=== PATIENT | female | born 1965 | race Caucasian/White ===

== ENCOUNTER → 2020-05-28 07:17 | Outpatient (CLI) | payer OTHER, SELFPAY ==
[2020-05-28 08:40] LABS: Appearance Urine UA CLEAR; Bilirubin Urine UA NEGATIVE (NEGATIVE); Color Urine UA YELLOW; Glucose Urine UA NEGATIVE (Negative); Ketones Urine UA NEGATIVE (NEGATIVE); Leukocyte Esterase Urine UA NEGATIVE (NEGATIVE); Nitrite Urine UA NEGATIVE (Negative); Occult Blood Urine UA NEGATIVE (Negative); Protein Urine UA NEGATIVE (Negative); Urobilinogen Urine UA 0.2 E.U./dL (0.2)
[2020-05-28 08:44] LABS: Add Manual Diff / Slide Review NO; Basophils Absolute Auto 100 /uL (0-100); Eosinophils Absolute Auto 100 /uL (0-450); Eosinophils Percent Auto 2.2 % (2-4); Hematocrit 40.4 % (36-46); Hemoglobin 13.3 g/dL (12.0-16.0); Lymphocytes Absolute Auto 1600 /uL (1100-4500); Lymphocytes Percent Auto 25.2 % (25-40); Mean Corpuscular HGB Conc 32.9 % (30-36); Mean Corpuscular Hemoglobin 29.7 PG (26-34); Mean Corpuscular Volume 90.3 fL (80-100); Monocytes Absolute Auto 400 /uL (0-900); Monocytes Percent Auto 5.7 % (3-14); Neutrophils Absolute Auto 4100 /uL (1500-7000); Neutrophils Percent Auto 65.9 % (50-75); Platelet Count 233 X10^3/uL (150-400); Red Blood Cell Count 4.48 X10^6/uL (4.0-5.2); Red Cell Distribution Width 13.8 % (11.6-14.8); White Blood Cell Count 6.2 X10^3/uL (4.5-11.0)
[2020-05-28 08:46] LABS: pH Urine UA 5.5 (4.5-8.0)
[2020-05-28 09:09] LABS: Alanine Aminotransferase 55 IU/L (<35); Albumin 4.4 g/dL (3.5-5.0); Albumin Globulin Ratio 1.7 (1.0-2.8); Alkaline Phosphatase 72 U/L (38-126); Aspartate Aminotransferase 29 IU/L (14-36); BUN Creatinine Ratio 18.7 (6-22); Bilirubin Total 0.3 mg/dL (0.2-1.3); Blood Urea Nitrogen 14 mg/dL (7-17); Calcium 9.5 mg/dL (8.4-10.2); Carbon Dioxide 23 mmol/L (22-32); Chloride 108 mmol/L (98-107); Estimated Glomerular Filt Rate > 60.0 mL/min (>60); Globulin 2.6 g/dL (1.7-4.1); Glucose 86 mg/dL (70-100); HEMOLYSIS < 15 (0-50); Potassium 4.3 mmol/L (3.4-5.1); Sodium 140 mmol/L (137-145)
[2020-05-28 09:25] LABS: TSH w/ Reflex to FT4 1.98 uIU/mL (0.47-4.68)
== END ==
PROVIDERS: PCP Registered Nurse; Referring Provider Registered Nurse; Visit Provider Registered Nurse
DX: R53.83 Other fatigue (principal)
CPT/HCPCS: 36415; 80053; 81003; 84443; 85025

== ENCOUNTER → 2020-06-25 16:51 | Outpatient (CLI) | payer OTHER, SELFPAY ==
--- NOTE | 2020-06-25 | DI.MG.S_ITS ---
BILATERAL DIGITAL SCREENING MAMMOGRAM 3D/2D WITH CAD: 06/25/2020 CLINICAL: Routine screening. Comparison is made to exams dated: 11/30/2011 mammogram, 10/29/2014 mammogram, and 08/02/2016 mammogram - outside location. There are scattered fibroglandular elements in both breasts. Current study was also evaluated with a Computer Aided Detection (CAD) system. No significant masses, calcifications, or other findings are seen in either breast. There has been no significant interval change. IMPRESSION: NEGATIVE There is no mammographic evidence of malignancy. A 1 year screening mammogram is recommended. This exam was interpreted at Station ID: [id number]. NOTE: For mammograms, a report in lay terms will be sent to the patient. Approximately 15% of breast malignancies will not be visualized mammographically. In the management of a palpable breast mass, a negative mammogram must not discourage biopsy of a clinically suspicious lesion. Electronically Signed By: Ruma mosher/annia:06/25/2020 17:32:34 letter sent: Normal Exam ACR BI-RADS Category 1: Negative [id number]
== END ==
PROVIDERS: PCP Registered Nurse; Referring Provider Registered Nurse; Visit Provider Registered Nurse
DX: Z12.31 Encounter for screening mammogram for malignant neoplasm of breast (principal)
CPT/HCPCS: 77063; 77067

== ENCOUNTER 2022-07-01 10:06 | Inpatient (IN) | payer OTHER, SELFPAY ==
[2022-07-01] VITALS (16 sets, daily range): BP systolic 113–142; BP diastolic 65–103; PULSE 65–87; RESP 16–19; TEMP 36.6–36.9; O2SAT 95–100; BMI 34.0; BMI 34.9
--- NOTE | 2022-07-01 10:27 | DI.US.S_ITS ---
PROCEDURE: US ABDOMEN LIMITED INDICATIONS: RUQ abd pain eval for GB pathology TECHNIQUE: Real-time focused scanning was performed of the abdomen, with image documentation. COMPARISON: None. FINDINGS: Liver measures 15.4 cm, with mild to moderately increased echogenicity. Cholelithiasis. Sonographic Pradhan sign is present. Wall thickness is normal. CBD measures 3.9 mm. Visualized pancreas is unremarkable. IMPRESSION: Cholelithiasis with sonographic Pradhan sign is suspicious for cholecystitis in the correct clinical context. This was communicated by telephone to Dr. Kimball by Dr. Hylton at 11:20am. Dictated by: Donte Hylton M.D. on 07/01/2022 at 11:17 Approved by: Donte Hylton M.D. on 07/01/2022 at 11:23
--- NOTE | 2022-07-01 10:27 | ED_ITS ---
HPI - General Adult General Chief complaint: Abdominal Pain Stated complaint: Vomiting, right side abd pain Time Seen by Provider: 07/01/22 10:16 Source: patient Mode of arrival: Ambulatory Limitations: no limitations History of Present Illness HPI narrative: 56-year-old female who is here for evaluation of right upper quadrant abdominal pain. States that it started approximately 1000 hours last evening. She was going to sleep at the time. Has been consistent since then. No fevers. She did vomit in the middle of the night which did not change the pain at all. She is urinated and also had a small bowel movement which did not change the discomfort at all. No skin rashes. Has not tried anything for the symptoms. No prior abdominal surgeries except for a hysterectomy. Related Data Home Medications Medication Instructions Recorded Confirmed No Known Home Medications 07/01/22 07/01/22 Allergies Allergy/AdvReac Type Severity Reaction Status Date / Time Penicillins Allergy Mild hives Verified 08/18/20 08:09 Review of Systems Constitutional Constitutional: Denies fever(s) Cardiovascular Cardiovascular: Denies chest pain and Denies dyspnea Respiratory Respiratory: Denies cough and Denies dyspnea Gastrointestinal Gastrointestinal: Reports system reviewed and no additional complaints, except as documented, Reports abdominal pain, Denies change in bowel habits, Denies diarrhea and Reports vomiting Genitourinary Genitourinary: Denies dysuria Musculoskeletal Musculoskeletal: Denies back pain Integumentary/Breasts Skin/Breast: Reports system reviewed and no additional complaints, except as documented Neurologic Neurologic: Reports system reviewed and no additional complaints, except as documented Hematologic/Lymphatic On Anticoagulants: No Patient History Medical History Acute right-sided thoracic back pain Carpal tunnel syndrome (~1989) Chicken pox (~1972) Seasonal allergies Surgical History Anesthesia History of partial hysterectomy (~2000) Family History Father Arthritis Mother Parkinson's disease Sister Fibromyalgia Arthritis Dercum disease Social History household members: none Smoking Status: Current some day smoker alcohol intake: current Smoking Status: Current some day smoker alcohol intake frequency: 0-2 drinks per day Substance Use Type: does not use Exam Initial Vital Signs Initial Vital Signs: Vital Signs Temperature 98.4 F 07/01/22 10:22 Pulse Rate 87 07/01/22 10:22 Respiratory Rate 18 07/01/22 10:22 Blood Pressure 142/103 H 07/01/22 10:22 Pulse Oximetry 96 07/01/22 10:22 Oxygen Delivery Method 07/01/22 10:22 HENMT Head: normal to inspection and normocephalic Resp Effort & Inspection: normal respiratory effort Auscultation: clear to auscultation bilaterally Cardio Rate: regular rate Rhythm: regular rhythm GI Inspection: normal to inspection Palpation: soft, No firm, No guarding and tender (Right upper quadrant) Back/Spine/Pelvis Back: No CVA tenderness Skin General: no rashes or lesions noted Neuro General: patient alert, patient awake and moves all extremities Extrem General: normal to inspection and capillary refill normal Psych Appearance: grossly normal and well kempt Course Orders Ordered: ED Orders 07/01/22 10:17 EKG-12 Lead Stat 07/01/22 10:26 Complete Blood Count AUTO DIFF Stat Comprehensive Metabolic Panel Stat Lipase Stat 07/01/22 10:27 US abdomen limited Stat 07/01/22 10:53 Urine Culture Stat Urine Microscopic Stat 07/01/22 14:58 CT abdomen pelvis w con Stat Acetaminophen (Acetaminophen 325 Mg Tablet) 975 mg PO Q6H [facility] Last Admin: 07/01/22 17:07 Dose: 975 mg Documented By: MARCIA Enoxaparin Sodium (Enoxaparin 40 Mg/0.4 Ml Syringe) 40 mg SUBCUT DAILY [facility] Hydromorphone HCl (Hydromorphone 1 Mg Inj) 1 mg IV Q4H PRN PRN Reason: Pain, Moderate (4-6) Last Admin: 07/01/22 16:19 Dose: 1 mg Documented By: BT Hydromorphone HCl (Hydromorphone 0.5 Mg Inj) 0.5 mg IV Q2H PRN PRN Reason: Breakthrough pain only (8-10) Sodium Chloride (Normal Saline 0.9%) 1,000 mls @ 125 mls/hr IV CONT EKATERINA Last Infusion: 07/01/22 15:42 Dose: 0 mls/hr Documented By: Admin: 07/01/22 15:01 Dose: 125 mls/hr Documented By: NAGA Lactated Ringer's (Lactated Ringers) 1,000 mls @ 100 mls/hr IV CONT EKATERINA Last Admin: 07/01/22 16:53 Dose: 100 mls/hr Documented By: BT Ciprofloxacin (Cipro) 400 mg in 200 mls @ 200 mls/hr IV Q12H EKATERINA Metronidazole (Flagyl) 500 mg in 100 mls @ 100 mls/hr IV Q8H [facility] Last Admin: 07/01/22 16:54 Dose: 100 mls/hr Documented By: BT Ondansetron HCl 4 mg/ Sodium (Chloride) 52 mls @ 208 mls/hr IV Q6HR PRN PRN Reason: Nausea And Vomiting Ketorolac Tromethamine (Ketorolac 30 Mg/Ml Vial) 30 mg IV Q6H [facility] Stop: 07/06/22 16:50 Last Admin: 07/01/22 17:07 Dose: 30 mg Documented By: BT Naloxone HCl (Naloxone 0.4 Mg/Ml Vial) 0.1 mg IV Q2MIN PRN PRN Reason: Opiate Reversal Discontinued Medications Morphine Sulfate (Morphine 4 Mg/Ml Inj) 4 mg IV NOW ONE Stop: 07/01/22 10:35 Last Admin: 07/01/22 10:41 Dose: 4 mg Documented By: KF Morphine Sulfate (Morphine 4 Mg/Ml Inj) 4 mg IV NOW ONE Stop: 07/01/22 11:52 Last Admin: 07/01/22 11:55 Dose: 4 mg Documented By: NAGA Morphine Sulfate (Morphine 4 Mg/Ml Inj) 4 mg IV NOW ONE Stop: 07/01/22 13:46 Last Admin: 07/01/22 13:52 Dose: 4 mg Documented By: KAT Ondansetron HCl (Ondansetron 4 Mg/2 Ml Inj) 4 mg IV NOW ONE Stop: 07/01/22 11:14 Last Admin: 07/01/22 11:18 Dose: 4 mg Documented By: NAGA Vital Signs Vital signs: Vital Signs - 8 hr 07/01/22 10:22 07/01/22 10:53 07/01/22 11:00 Temperature 98.4 F Pulse Rate 87 84 79 Respiratory Rate 18 Blood Pressure 142/103 H Pulse Oximetry 96 98 97 Oxygen Delivery Method Room Air 07/01/22 11:24 07/01/22 11:24 07/01/22 11:30 Temperature Pulse Rate 65 76 Respiratory Rate Blood Pressure 131/81 Pulse Oximetry 98 95 Oxygen Delivery Method 07/01/22 12:00 07/01/22 12:00 07/01/22 12:30 Temperature Pulse Rate 65 81 Respiratory Rate Blood Pressure 137/65 Pulse Oximetry 97 95 Oxygen Delivery Method Room Air 07/01/22 13:00 07/01/22 13:00 07/01/22 13:30 Temperature Pulse Rate 79 77 Respiratory Rate Blood Pressure 141/68 H Pulse Oximetry 98 97 Oxygen Delivery Method Room Air 07/01/22 14:00 07/01/22 14:00 07/01/22 14:30 Temperature Pulse Rate 76 80 Respiratory Rate Blood Pressure 131/65 Pulse Oximetry 98 97 Oxygen Delivery Method Room Air 07/01/22 15:00 07/01/22 15:00 Temperature Pulse Rate 83 Respiratory Rate Blood Pressure 134/66 Pulse Oximetry 98 Oxygen Delivery Method Medical Decision Making Lab Data Lab results reviewed: Yes I reviewed the patient's lab results. Result diagrams: 07/01/22 10:26 07/01/22 10:26 Labs: Lab Results 07/01/22 07/01/22 07/01/22 Range/Units 10:26 10:26 10:53 WBC 16.3 H (4.5-11.0) X10^3/uL RBC 4.59 (4.0-5.2) X10^6/uL Hgb 13.5 (12.0-16.0) g/dL Hct 39.8 (36-46) % MCV 86.8 (80-100) fL MCH 29.3 (26-34) PG MCHC 33.8 (30-36) % RDW 14.1 (11.6-14.8) % Plt Count 277 (150-400) X10^3/uL Neut % (Auto) 89.0 H (50-75) % Lymph % (Auto) 6.4 L (25-40) % [place] % (Auto) 4.4 (3-14) % Eos % (Auto) 0.1 L (2-4) % Baso % (Auto) 0.1 (0-2) % Neut # (Auto) 76806 H (7948-8900) /uL Lymph # (Auto) 1000 L (7936-3198) /uL [place] # (Auto) 700 (0-900) /uL Eos # (Auto) 0 (0-450) /uL Baso # (Auto) 0 (0-100) /uL Sodium 136 L (137-145) mmol/L Potassium 3.9 (3.4-5.1) mmol/L Chloride 105 (98-107) mmol/L Carbon Dioxide 22 (22-32) mmol/L BUN 12 (7-17) mg/dL Creatinine 0.76 (0.52-1.04) mg/dL Estimated GFR > 60 (>60) mL/min BUN/Creatinine Ratio 15.8 (6-22) Glucose 113 H (70-100) mg/dL Calcium 9.2 (8.4-10.2) mg/dL Total Bilirubin 0.3 (0.2-1.3) mg/dL AST 20 (14-36) IU/L ALT 21 (<35) IU/L Alkaline Phosphatase 77 (38-126) U/L Total Protein 7.6 (6.3-8.2) g/dL Albumin 4.2 (3.5-5.0) g/dL Globulin 3.4 (1.7-4.1) g/dL Albumin/Globulin Ratio 1.2 (1.0-2.8) Lipase 208 (23-300) U/L Urine RBC None seen (0-5/HPF) Urine WBC None seen (0-5/HPF) Ur Squamous Epith Cells 1-5 /hpf (0-5/HPF) Urine Bacteria None seen (None) Ur Culture Indicated? Cult not indicated Urine Dip Bedside Urine Glucose Negative Bedside Urine Bilirubin - Negative Bedside Urine Ketone +/- 5 Urine Specific [place] 1.010 Bedside Urine Occult Blood - Negative Bedside Urine pH 8.0 Bedside Urine Protein - Negative Bedside Urine Urobilinogen - Negative Bedside Urine Nitrite - Negative Bedside Urine Leukocytes - Negative Esterase Point of care testing: Urine Dip Bedside Urine Glucose Negative Bedside Urine Bilirubin - Negative Bedside Urine Ketone +/- 5 Urine Specific [place] 1.010 Bedside Urine Occult Blood - Negative Bedside Urine pH 8.0 Bedside Urine Protein - Negative Bedside Urine Urobilinogen - Negative Bedside Urine Nitrite - Negative Bedside Urine Leukocytes - Negative Esterase Imaging Data US - abdomen: Radiologist's Impression: [address] [address] Ultrasound Report Signed Patient: Tammy Ibarra MR#: [id number] : 1965 Acct:[id number] Age/Sex: 56 / F Date of Service: 07/01/22 Loc: ED Accession Number: [id number] ?? Procedure: US abdomen limited Ordering Provider: Chai Kimball D.O. PROCEDURE: US ABDOMEN LIMITED ? INDICATIONS:? RUQ abd pain eval for GB pathology ? TECHNIQUE:? Real-time focused scanning was performed of the abdomen, with image documentation.? ? COMPARISON:? None. ? FINDINGS:? Liver measures 15.4 cm, with mild to moderately increased echogenicity. ? Cholelithiasis.? Sonographic Pradhan sign is present.? Wall thickness is normal. ? CBD measures 3.9 mm. ? Visualized pancreas is unremarkable. ? IMPRESSION:? Cholelithiasis with sonographic Pradhan sign is suspicious for cholecystitis in the correct clinical context.? ? This was communicated by telephone to Dr. Kimball by Dr. Hylton at 11:20am. ? Dictated by: Donte Hylton M.D. on 07/01/2022 at 11:17 ? ? Approved by: Donte Hylton M.D. on 07/01/2022 at 11:23?? ECG Data Attestation: I personally reviewed and interpreted this ECG as follows: Interpretation: Sinus rhythm Ventricular rate is 78 Normal axis Normal QRS Normal QTC No ST T wave changes MDM Narrative Medical decision making narrative: She does have right upper quadrant abdominal pain. CT scan shows gallstones. Her LFTs and bilirubin unremarkable. Does have leukocytosis. She also had a positive sonographic Pradhan's sign. Received a call from radiology. He stated that in the proper clinical setting it would be consistent with symptomatic cholelithiasis or early acute cholecystitis. I did discuss the case with Dr. Gonzalez who evaluated the patient in the emergency department. The plan will be is to admit to the hospital for surgical treatment of her presumed gallbladder pathology. Upon her evaluation the patient then started to have lower abdominal discomfort on the left side. The patient did admit that this was new for my evaluation. General surgery requested a CT scan of the abdomen pelvis be performed. I received a call from Radiology stating that the CT scan was consistent with acute appendicitis. The patient had already been admitted to the hospital when this was resulted. I did inform General surgery of this resolved. General surgery was going to inform the patient and will provide further surgical treatment. Discharge Plan Departure Patient Disposition: Admitted as Observation Clinical Impression: Acute cholecystitis, Acute appendicitis Admit Date/Time: 07/01/22 15:09 Admit Provider: Dolly Gonzalez
[2022-07-01 10:35] LABS: Add Manual Diff / Slide Review NO; Basophils Absolute Auto 0 /uL (0-100); Basophils Percent Auto 0.1 % (0-2); Eosinophils Absolute Auto 0 /uL (0-450); Eosinophils Percent Auto 0.1 % (2-4); Hematocrit 39.8 % (36-46); Hemoglobin 13.5 g/dL (12.0-16.0); Lymphocytes Absolute Auto 1000 /uL (1100-4500); Lymphocytes Percent Auto 6.4 % (25-40); Mean Corpuscular HGB Conc 33.8 % (30-36); Mean Corpuscular Hemoglobin 29.3 PG (26-34); Mean Corpuscular Volume 86.8 fL (80-100); Monocytes Absolute Auto 700 /uL (0-900); Monocytes Percent Auto 4.4 % (3-14); Neutrophils Absolute Auto 14500 /uL (1500-7000); Platelet Count 277 X10^3/uL (150-400); Red Blood Cell Count 4.59 X10^6/uL (4.0-5.2); Red Cell Distribution Width 14.1 % (11.6-14.8); White Blood Cell Count 16.3 X10^3/uL (4.5-11.0)
[2022-07-01] MEDS: MORPHINE 4 MG/ML INJ IV ×3 (10:41→13:52)
[2022-07-01 10:47] LABS: Alanine Aminotransferase 21 IU/L (<35); Albumin 4.2 g/dL (3.5-5.0); Albumin Globulin Ratio 1.2 (1.0-2.8); Alkaline Phosphatase 77 U/L (38-126); Aspartate Aminotransferase 20 IU/L (14-36); BUN Creatinine Ratio 15.8 (6-22); Bilirubin Total 0.3 mg/dL (0.2-1.3); Blood Urea Nitrogen 12 mg/dL (7-17); Calcium 9.2 mg/dL (8.4-10.2); Carbon Dioxide 22 mmol/L (22-32); Chloride 105 mmol/L (98-107); Estimated Glomerular Filt Rate > 60 mL/min (>60); Globulin 3.4 g/dL (1.7-4.1); Glucose 113 mg/dL (70-100); HEMOLYSIS < 15 (0-50); Lipase 208 U/L (23-300); Potassium 3.9 mmol/L (3.4-5.1); Sodium 136 mmol/L (137-145); Total Protein 7.6 g/dL (6.3-8.2)
[2022-07-01] MEDS: ONDANSETRON 4 MG/2 ML INJ IV (11:18)
[2022-07-01 11:33] LABS: Bacteria Urine None Seen; Culture Indicated Urine Cult Not Indicated; RBC Urine None Seen (0-5/HPF); Squamous Epithelial Cell Urine 1-5 /HPF (0-5/HPF); WBC Urine None Seen (0-5/HPF)
--- NOTE | 2022-07-01 14:58 | DI.CT.S_ITS ---
PROCEDURE: CT ABDOMEN PELVIS W CON INDICATIONS: LLQ abd pain TECHNIQUE: After the administration of intravenous contrast, axial sections acquired from the lung bases to the pubic symphysis. Coronal and sagittal reformats were performed. For radiation dose reduction, the following was used: automated exposure control, adjustment of mA and/or kV according to patient size. COMPARISON: None. FINDINGS: Image quality: Excellent. Lung bases: Unremarkable. Heart: No significant findings. ABDOMEN: Liver: Unremarkable. Gallbladder: Normal Biliary ducts: Unremarkable. Pancreas: Unremarkable. Spleen: Unremarkable. Adrenal Glands: Unremarkable. Kidneys and Ureters: Unremarkable. Stomach and Bowel: Stomach, small bowel loops, and colon are unremarkable. Peritoneum: No abnormal intraperitoneal fluid. No free air. Ventral Wall: No hernias. Abdominal Nodes: No retroperitoneal or mesenteric adenopathy by size criteria. Vessels: Aorta and inferior vena cava are normal in size. PELVIS: Pelvic Organs: Unremarkable. Bladder: Unremarkable. Pelvic Nodes: No enlarged lymph nodes. Miscellaneous: No hernias are seen. At the right lower quadrant there is acute appendicitis with appendiceal dilatation and periappendiceal edema. Two appendicoliths or 1 long appendicoliths are present at the base of the appendix, centered on series 2, image 55 and beyond that point the appendix is dilated. There is an air-fluid level within the proximal dilated appendix and definite appendiceal perforation at this time is not yet seen. Bones: Unremarkable. IMPRESSION: Acute appendicitis with appendicoliths at the appendiceal base with secondary distension and edema in the periappendiceal soft tissues. The presence of appendicoliths does increase the risk for early perforation in the setting of appendicitis. Findings immediately called to the emergency room physician caring for the patient. Dictated by: Fred Cain M.D. on 07/01/2022 at 15:39 Approved by: Fred Cain M.D. on 07/01/2022 at 15:45
[2022-07-01] MEDS: SODIUM CHLORIDE 0.9% 1,000 ML 125 ML IV (15:01)
[2022-07-01] MEDS: HYDROMORPHONE 1 MG INJ IV (16:19)
[2022-07-01] MEDS: LACTATED RINGERS 1,000 ML 100 ML IV (16:53)
[2022-07-01] MEDS: metroNIDAZOLE 500 MG/100 ML PIGGYBACK 100 MG IV ×2 (16:54→23:15)
[2022-07-01] MEDS: KETOROLAC 30 MG/ML VIAL IV ×2 (17:07→23:14)
[2022-07-01] MEDS: ACETAMINOPHEN 325 MG TABLET 975 MG PO ×2 (17:07→23:14)
--- NOTE | 2022-07-01 17:14 | P.HP_ITS ---
History of Present Illness History of Present Illness Chief complaint: Vomiting, right side abd pain Narrative: Ms. Ibarra presents today as a 56-year-old relatively healthy obese woman with severe right-sided abdominal pain. She has had vomiting and right upper quadrant epigastric pain for the last 24 hours. She states that she has never had pain like this before. And does not know any association with foods. This time she does not feel hungry. She has had a kidney stone in the past. Her sister has had a cholecystectomy. An ultrasound in the emergency room was done and showed 1 large mobile stone in the gallbladder. Her LFTs bilirubin and lipase are okay and her white count is 16. She has an allergy to penicillin and gets hives. Patient History Medical History Acute right-sided thoracic back pain Carpal tunnel syndrome (~1989) Chicken pox (~1972) Seasonal allergies Surgical History Anesthesia History of partial hysterectomy (~2000) Family & Social History Family History Father Arthritis Mother Parkinson's disease Sister Fibromyalgia Arthritis Dercum disease Social History: household members none Prior Living Arrangements House Safety & Behavioral: Feels Safe in Current Yes Environment Been Physically Hurt or No Threatened By a Person Tobacco & Substance use: Tobacco type cigarettes Smoking Status Current some day smoker alcohol intake current alcohol intake frequency 0-2 drinks per day Substance Use Type does not use Meds Home Medications and Allergies Home Medications Medication Instructions Recorded Confirmed Type No Known Home Medications 07/01/22 07/01/22 History Allergies Allergy/AdvReac Type Severity Reaction Status Date / Time Penicillins Allergy Mild hives Verified 08/18/20 08:09 Exam Vital Signs (past 8 hours): - 07/01/22 10:22 07/01/22 10:53 07/01/22 11:00 Temperature 98.4 F Pulse Rate 87 84 79 Respiratory Rate 18 Blood Pressure 142/103 H Pulse Oximetry 96 98 97 Oxygen Delivery Method Room Air 07/01/22 11:24 07/01/22 11:24 07/01/22 11:30 Temperature Pulse Rate 65 76 Respiratory Rate Blood Pressure 131/81 Pulse Oximetry 98 95 Oxygen Delivery Method 07/01/22 12:00 07/01/22 12:00 07/01/22 12:30 Temperature Pulse Rate 65 81 Respiratory Rate Blood Pressure 137/65 Pulse Oximetry 97 95 Oxygen Delivery Method Room Air 07/01/22 13:00 07/01/22 13:00 07/01/22 13:30 Temperature Pulse Rate 79 77 Respiratory Rate Blood Pressure 141/68 H Pulse Oximetry 98 97 Oxygen Delivery Method Room Air 07/01/22 14:00 07/01/22 14:00 07/01/22 14:30 Temperature Pulse Rate 76 80 Respiratory Rate Blood Pressure 131/65 Pulse Oximetry 98 97 Oxygen Delivery Method Room Air 07/01/22 15:00 07/01/22 15:00 07/01/22 15:16 Temperature Pulse Rate 83 87 Respiratory Rate Blood Pressure 134/66 Pulse Oximetry 98 100 Oxygen Delivery Method 07/01/22 15:16 07/01/22 15:30 Temperature Pulse Rate 80 Respiratory Rate Blood Pressure 141/73 H Pulse Oximetry 95 Oxygen Delivery Method Oxygen Delivery Method Room Air Narrative Exam Narrative: General patient is awake alert oriented and in minimal distress. She is pleasant. Respiratory her breathing is nonlabored on room air Cardiac: Her radial pulse is palpable and regular Gastrointestinal: Her abdomen is obese it is soft it is tender to palpation in the suprapubic region as well as the right upper quadrant. No peritoneal signs. Lower extremities are normal Objective Labs Result Diagrams: 07/01/22 10:26 07/01/22 10:26 Labs: Laboratory Results - last 24 hr 07/01/22 07/01/22 07/01/22 10:26 10:26 10:53 WBC 16.3 H RBC 4.59 Hgb 13.5 Hct 39.8 MCV 86.8 MCH 29.3 MCHC 33.8 RDW 14.1 Plt Count 277 Neut % (Auto) 89.0 H Lymph % (Auto) 6.4 L [place] % (Auto) 4.4 Eos % (Auto) 0.1 L Baso % (Auto) 0.1 Neut # (Auto) 25156 H Lymph # (Auto) 1000 L [place] # (Auto) 700 Eos # (Auto) 0 Baso # (Auto) 0 Sodium 136 L Potassium 3.9 Chloride 105 Carbon Dioxide 22 BUN 12 Creatinine 0.76 Estimated GFR > 60 BUN/Creatinine Ratio 15.8 Glucose 113 H Calcium 9.2 Total Bilirubin 0.3 AST 20 ALT 21 Alkaline Phosphatase 77 Total Protein 7.6 Albumin 4.2 Globulin 3.4 Albumin/Globulin Ratio 1.2 Lipase 208 Urine RBC None seen Urine WBC None seen Ur Squamous Epith Cells 1-5 /hpf Urine Bacteria None seen Ur Culture Indicated? Cult not indicated Assessment & Plan Assessment and plan (1) Acute appendicitis: Status: Acute Plan There had been a thought that this represented acute cholecystitis due to the ultrasound finding of a stone in the right upper quadrant pain with nausea, and I had agreed based on this conversation that she may be admitted and treated for acute cholecystitis. Upon questioning the patient she had never had symptoms like this before. Also on my exam her pain was in the lower abdomen. I recommended a CT scan. The results of the CT scan have been interpreted and I reviewed the images and interpreted them myself. She has acute appendicitis. I have admitted her to the hospital given her IV antibiotics IV fluids and she will be NPO after midnight at undergo an appendectomy in the morning I discussed with her the risks benefits and alternatives including treatment with IV antibiotics for appendicitis and she would like to proceed with appendectomy. Time Spent With Patient Time with patient: 30 to 49 minutes with 50% spent counseling/coordinating care Critical Care time: I spent a total of [] minutes of critical care time on this patient's care today; this time is exclusive of procedural time. Quality VTE Deep Vein Thrombosis/Pulmonary Embolism Present on Admission: No
[2022-07-01] MEDS: CIPROFLOXACIN 400 MG/200 ML PIGGYBACK 200 MG IV (18:00)
[2022-07-01 18:52] LABS: COVID19 -Nasal RAPID Negative (Negative)
[2022-07-02] VITALS (14 sets, daily range): BP systolic 107–155; BP diastolic 63–79; PULSE 70–99; RESP 12–19; TEMP 36–38.2; O2SAT 94–100
--- NOTE | 2022-07-02 | PATH_ITS ---
[facility] Accession Number: [id number] . 01 Material submitted: . appendix - APPENDIX . 01 Diagnosis: Appendix, Appendectomy: Perforated acute appendicitis with mural abscess. No evidence of neoplasm. MRV 07/06/2022 1643 Local . 01 Electronically signed: . Ras Diaz MD, PhD, Pathologist NPI- [id number] . 01 Gross description: . The specimen is received in formalin labeled with the patient's name and appendix, and consists of a vermiform appendix measuring 7.3 x 0.6 cm. The serosa is mcguire-degroot and shaggy with a large amount of degroot adherent material consistent with exudate. Two full-thickness defects are identified ranging from 0.3 to 0.8 cm in greatest dimension. A moderate amount of attached mesoappendix is identified measuring 2.2 cm in greatest dimension. The surgical margin is received closed with sol which are removed, the margin is inked blue, and sectioning reveals the lumen to be filled with multiple brown firm structures consistent with fecaliths measuring 0.8 cm in greatest dimension along with degroot-brown semi-solid material. The lumen ranges from 0.3 to 0.8 cm in diameter and the mathur average 0.1 cm thick. A degroot well-circumscribed firm nodule is identified within the distal tip measuring 0.6 x 0.4 x 0.4 cm. Operations Systems Specialist sections are submitted as follows: . A1-A2: Entire bisected distal tip (full-thickness defect in A1). A3: Surgical margin and national sales representative cross-sections. ([id number]) /MRV 07/05/2022 1708 Local . 01 Pathologist provided ICD-10: K35.20 . 01 CPT . 172398 Specimen Comment: A courtesy copy of this report has been sent to [phone] Performed at: 01 [facility] [address] [place] [address] Avenue [address] [facility] [place], [place], [place] [id number] MD Dwayne Sanchez MD Phone: [phone]
[2022-07-02] MEDS: CIPROFLOXACIN 400 MG/200 ML PIGGYBACK 200 MG IV ×2 (05:04→16:14)
[2022-07-02] MEDS: KETOROLAC 30 MG/ML VIAL IV ×3 (05:04→22:52)
[2022-07-02] MEDS: ACETAMINOPHEN 325 MG TABLET 975 MG PO ×3 (05:04→22:52)
[2022-07-02] MEDS: LACTATED RINGERS 1,000 ML 100 ML IV ×2 (05:04→22:51)
[2022-07-02] MEDS: metroNIDAZOLE 500 MG/100 ML PIGGYBACK 100 MG IV ×2 (08:48→23:52)
--- NOTE | 2022-07-02 09:24 | CM.DANOTE ---
Initial DCP Assessment Note Pt is a 56 yo female, resident of [place], arrives with persistent abd pain and vomiting and awaiting appendectomy today w/ Dr Valencia PCP: Rich Trotter Payer: Angela Reviewed chart, met w/patient to introduce self and role. 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 Patient expects to DC home w/her dtr Mirela Underwood P# [phone] to assist while she recovers. No barriers identified at this time to patient's safe discharge home w/family to assist; close outpatient f/u recommended. IVETTE Caruso Discharge Planning/Care Management CM Discharge Assessment Start: 07/02/22 09:22 Freq: Status: Active Protocol: Document 07/02/22 09:22 LEONID (Rec: 07/02/22 09:23 [id number]) Discharge Planning Assessment Assigned Bulk Tank Car Unloader IVETTE Land DPOA/Assigned Designee Name sister [place] Contact Information [phone] Advance Directives? No History Provided By Patient,Medical Record Prior Living Arrangements House Household Members none Type of transporation used prior to Drives own vehicle admit Independent with ADL's Yes Is patient alert and oriented? Yes Barriers to Discharge No Comment Home w/dtr to assist during recovery Discharge Plan Home Transportation Arrangement Family Referrals Initiated None needed
--- NOTE | 2022-07-02 09:27 | PC.NURSE ---
Addendum entered by Rosa Donohue R.N. 07/02/22 15:51: Pt escorted to OR by OR staff Addendum entered by Rosa Donohue R.N. 07/02/22 15:06: Pt continues to wait for OR Resting quietly Original Note: Pt independent in room & set up for shower. Remains NPO for surgery today Pt IVF LR @ 100cc/hr inusing into LAC via pump w/o incidence. Call light w/in reach; pt calls appropriately for needs.
[2022-07-02] MEDS: LACTATED RINGERS 1,000 ML 42 ML IV ×2 (13:48→16:04)
--- NOTE | 2022-07-02 16:34 | SUR.OPER ---
Supine on padded OR bed, head on pillow,RIGHT arm secured on padded arm board at <90 degrees abduction, legs uncrossed, safety belt at thigh, tape over blanket over lower legs. LEFT ARM TUCKED.
[2022-07-02] MEDS: BUPIVACAINE 0.5% (PF) VIAL 30 ML INJ (16:41)
[2022-07-02] MEDS: LIDOCAINE 1% (PF) 5 ML 30 ML INJ (16:44)
[2022-07-02] MEDS: EPINEPHrine 1 MG/ML 0.15 MG INJ (16:46)
--- NOTE | 2022-07-02 17:19 | PM.OP.1 ---
Operative Date/Time/Diagnoses Date of procedure: 07/02/22 Time of procedure: 17:20 Pre-op diagnosis: Acute appendicitis Procedure & Clinicians Procedure: Laparoscopic appendectomy Same procedure as scheduled: Yes Surgeon: Edouard Valencia Anesthesia Type: General Operative Notes Procedure in detail: Procedure in detail: The patient was on IV antibiotics. The patient was brought to the operating room, placed on the table in the supine position and general endotracheal anesthesia was induced. A time-out was performed. The abdomen was prepped and draped in the usual fashion. After injection of 0.25% Marcaine a 1 cm infraumbilical incision was created with a 15 blade scalpel. The umbilical stalk was grasped with a Aleena clamp to elevate the abdominal wall. The infraumbilical midline fascia was cleared over 1 cm and the fascia was scored with cautery. The posterior fascia was very thin and we could see directly into the abdomen. The Nataliya port was placed and the abdomen was insufflated to 15 mmHg. The camera was inserted and there was no evidence of any injury from the entry. Next, 5 mm ports were placed in the suprapubic and left lower quadrant positions under direct vision. The patient was placed in Trendelenburg with the right-side elevated. The terminal ileum was swept away from the cecum and the appendix was visualized. The appendix was inflamed, gangrenous and did rupture easily upon manipulation. The mesoappendix was divided with the LigaSure to the base. The linear Endo-LOUANN stapler was used to transect the appendix across the base with the cecum. Some of the murky fluid was suctioned from around the base the appendix. The base of appendix was hemostatic. The specimen was placed in a Endo-Catch bag. Due to the degree of contamination the decision was made to place a 15 [place] Sadi drain along the right pericolic gutter and it was brought out through the left port site. The drain was secured to the skin with a 2-0 nylon stitch. The table was flattened and the terminal ileum and omentum were allowed to slide in over the appendiceal stump and the drain. Finally, the 5 mm suprapubic port was removed under direct vision. The pneumoperitoneum was released and the Nataliya port was removed followed by the Endo-Catch bag. Additional local was injected into the fascia and the infraumbilical incision was closed with 2 interrupted 2-0 Vicryl sutures. The skin incisions were closed with 4 Monocryl. Steri-Strips were applied followed by Band-Aids. EBL: 5 mL Specimen: Appendix Post-operative Condition: stable Disposition: PACU
[2022-07-03] VITALS: BP 119/55; PULSE 101; RESP 17; TEMP 36.5; O2SAT 95
[2022-07-03] MEDS: CIPROFLOXACIN 400 MG/200 ML PIGGYBACK 200 MG IV ×2 (05:02→18:04)
[2022-07-03] MEDS: ACETAMINOPHEN 325 MG TABLET 975 MG PO ×3 (05:02→18:02)
[2022-07-03] MEDS: KETOROLAC 30 MG/ML VIAL IV ×3 (05:04→18:04)
--- NOTE | 2022-07-03 06:01 | PC.NURSE ---
Pt ambulating in room independently and passing gas throughout shift. JOLIE drain is draining well, pt familiar with them. Pt is denying pain unless moving around, c/o tenderness to abdomen but understands this is normal. + bowel tones.
[2022-07-03 06:22] VITALS: BP 104/60; PULSE 85; RESP 16; TEMP 35.9; O2SAT 97
[2022-07-03 07:10] LABS: Add Manual Diff / Slide Review NO; Basophils Absolute Auto 0 /uL (0-100); Basophils Percent Auto 0.1 % (0-2); Eosinophils Absolute Auto 0 /uL (0-450); Eosinophils Percent Auto 0.1 % (2-4); Hematocrit 33.5 % (36-46); Hemoglobin 11.3 g/dL (12.0-16.0); Lymphocytes Absolute Auto 900 /uL (1100-4500); Lymphocytes Percent Auto 5.5 % (25-40); Mean Corpuscular HGB Conc 33.6 % (30-36); Mean Corpuscular Hemoglobin 29.4 PG (26-34); Mean Corpuscular Volume 87.5 fL (80-100); Monocytes Absolute Auto 1000 /uL (0-900); Neutrophils Absolute Auto 14300 /uL (1500-7000); Neutrophils Percent Auto 88.3 % (50-75); Platelet Count 212 X10^3/uL (150-400); Red Blood Cell Count 3.82 X10^6/uL (4.0-5.2); White Blood Cell Count 16.2 X10^3/uL (4.5-11.0)
[2022-07-03 08:00] VITALS: BP 120/69; PULSE 65; RESP 20; TEMP 36.1; O2SAT 99
--- NOTE | 2022-07-03 09:37 | PM.PN.1 ---
Subjective Subjective Date Patient Seen: 07/03/22 Time Patient Seen: 09:37 Interval history: Tammy feels much better today. She has had breakfast and having bowel function. White blood cell count is still quite elevated. Exam Vital Signs (past 8 hours): - 07/03/22 06:22 07/03/22 08:00 Temperature 96.6 F L 97.0 F L Pulse Rate 85 65 Respiratory Rate 16 20 Blood Pressure 104/60 120/69 Pulse Oximetry 97 99 Oxygen Flow Rate 0 0 Oxygen Delivery Method Room Air Oxygen Flow Rate 0 Narrative Exam Narrative: Drain output is serosanguineous, still somewhat thick Objective Labs Result Diagrams: 07/03/22 06:55 07/01/22 10:26 Labs: Laboratory Results - last 24 hr 07/03/22 06:55 WBC 16.2 H RBC 3.82 L Hgb 11.3 L Hct 33.5 L MCV 87.5 MCH 29.4 MCHC 33.6 RDW 14.0 Plt Count 212 Neut % (Auto) 88.3 H Lymph % (Auto) 5.5 L [place] % (Auto) 6.0 Eos % (Auto) 0.1 L Baso % (Auto) 0.1 Neut # (Auto) 51036 H Lymph # (Auto) 900 L [place] # (Auto) 1000 H Eos # (Auto) 0 Baso # (Auto) 0 PFSH Medical History Acute right-sided thoracic back pain Carpal tunnel syndrome (~1989) Chicken pox (~1972) Seasonal allergies Surgical History Anesthesia History of partial hysterectomy (~2000) Family History Father Arthritis Mother Parkinson's disease Sister Fibromyalgia Arthritis Dercum disease Social History household members: none Smoking Status: Current some day smoker alcohol intake: current Assessment & Plan Assessment and plan (1) Acute appendicitis: Status: Acute Plan Continue IV antibiotics and drain If her white blood cell count comes down tomorrow in the drain output thins we would pull the drain and discharge her home. Time Spent With Patient Critical Care time: I spent a total of [] minutes of critical care time on this patient's care today; this time is exclusive of procedural time. Quality VTE Deep Vein Thrombosis/Pulmonary Embolism Present on Admission: No
[2022-07-03] MEDS: metroNIDAZOLE 500 MG/100 ML PIGGYBACK 100 MG IV ×2 (10:27→16:41)
[2022-07-03 21:25] VITALS: BP 107/59; PULSE 76; RESP 16; TEMP 36.9; O2SAT 99
--- NOTE | 2022-07-03 21:30 | PC.NURSE ---
Pt independent in room, talking and looking much better than yesterday shift. JOLIE producing serosanguinous drainage w/ 50ml so far.
[2022-07-04] MEDS: ACETAMINOPHEN 325 MG TABLET 975 MG PO ×2 (00:30→05:27)
[2022-07-04] MEDS: KETOROLAC 30 MG/ML VIAL IV ×3 (00:30→11:32)
[2022-07-04] MEDS: metroNIDAZOLE 500 MG/100 ML PIGGYBACK 100 MG IV ×2 (00:30→09:40)
[2022-07-04 05:00] VITALS: BP 119/69; PULSE 82; RESP 14; TEMP 36.7; O2SAT 97
[2022-07-04] MEDS: CIPROFLOXACIN 400 MG/200 ML PIGGYBACK 200 MG IV (05:27)
[2022-07-04 05:44] LABS: Add Manual Diff / Slide Review NO; Basophils Absolute Auto 0 /uL (0-100); Basophils Percent Auto 0.2 % (0-2); Eosinophils Absolute Auto 300 /uL (0-450); Eosinophils Percent Auto 2.2 % (2-4); Hemoglobin 11.1 g/dL (12.0-16.0); Lymphocytes Absolute Auto 1700 /uL (1100-4500); Lymphocytes Percent Auto 12.6 % (25-40); Mean Corpuscular HGB Conc 33.7 % (30-36); Mean Corpuscular Hemoglobin 29.5 PG (26-34); Mean Corpuscular Volume 87.5 fL (80-100); Monocytes Absolute Auto 900 /uL (0-900); Monocytes Percent Auto 6.3 % (3-14); Neutrophils Absolute Auto 10900 /uL (1500-7000); Neutrophils Percent Auto 78.7 % (50-75); Platelet Count 221 X10^3/uL (150-400); Red Blood Cell Count 3.77 X10^6/uL (4.0-5.2); Red Cell Distribution Width 14.2 % (11.6-14.8); White Blood Cell Count 13.8 X10^3/uL (4.5-11.0)
[2022-07-04] MEDS: SODIUM CHLORIDE 0.9% FLUSH 10 ML IV (08:40)
[2022-07-04 09:00] VITALS: BP 113/61; PULSE 71; RESP 20; TEMP 36.8; O2SAT 96
--- NOTE | 2022-07-04 12:30 | PM.DS.1 ---
History of Present Illness History of Present Illness Chief complaint: Vomiting, right side abd pain Discharge Providers Provider Date of admission: 07/01/22 15:09 Discharge Date: 07/04/22 Primary care physician: Rich Trotter DO Discharge provider: Edouard Valencia MD Summary Hospital Course Discharge Diagnosis: Acute appendicitis Hospital Course: The patient underwent laparoscopic appendectomy on 07/02/2022. [place] [address]. She had a gangrenous appendix and a drain was placed. She improved quickly and was tolerating diet. By postoperative day 2 her white blood cell count was almost normal and her drain output was more serous than sanguinous. The drain was discontinued and she was discharged home with 5 days of oral antibiotics. Exam Vital Signs (past 8 hours): - 07/04/22 05:00 07/04/22 09:00 Temperature 98.0 F 98.2 F Pulse Rate 82 71 Respiratory Rate 14 20 Blood Pressure 119/69 113/61 Pulse Oximetry 97 96 Oxygen Flow Rate 0 0 Oxygen Delivery Method Room Air Oxygen Flow Rate 0 Objective Labs Result Diagrams: 07/04/22 05:10 07/01/22 10:26 Labs: Laboratory Results - last 24 hr 07/04/22 05:10 WBC 13.8 H RBC 3.77 L Hgb 11.1 L Hct 33.0 L MCV 87.5 MCH 29.5 MCHC 33.7 RDW 14.2 Plt Count 221 Neut % (Auto) 78.7 H Lymph % (Auto) 12.6 L [place] % (Auto) 6.3 Eos % (Auto) 2.2 Baso % (Auto) 0.2 Neut # (Auto) 57480 H Lymph # (Auto) 1700 [place] # (Auto) 900 Eos # (Auto) 300 Baso # (Auto) 0 PFSH Medical History Acute right-sided thoracic back pain Carpal tunnel syndrome (~1989) Chicken pox (~1972) Seasonal allergies Surgical History Anesthesia History of partial hysterectomy (~2000) Family History Father Arthritis Mother Parkinson's disease Sister Fibromyalgia Arthritis Dercum disease Social History household members: none Smoking Status: Current some day smoker alcohol intake: current Discharge Plan Discharge Plan Patient Disposition: Home Provider Discharge Comment: Remove gauze from drain site in 24 hours and replace it if there is ongoing drainage. Otherwise leave open to air. Okay to shower once the drain site is dry. Okay to remove Steri-Strips after 1 week. Okay to shower with Steri-Strips. Take oral antibiotics for 5 days. Discharge orders & Medications Prescriptions: New metronidazole [Flagyl] 375 mg capsule 375 mg PO BID Qty: 10 0RF ciprofloxacin HCl 500 mg tablet 500 mg PO BID Qty: 10 0RF Follow up/Referrals: Rich Trotter DO [Primary Care Provider] - Discharge Data Primary Care Provider: Rich Trotter Quality VTE Deep Vein Thrombosis/Pulmonary Embolism Present on Admission: No
== END 2022-07-04 13:27 | disposition home or self-care (01) | DRG 343 ==
LOC: ED 15:09 → AC 15:25
PROVIDERS: Surgery; Admitting Provider Surgery; Emergency Provider Emergency Medicine; PCP Family Medicine; Referring Provider Emergency Medicine; Visit Provider Surgery
PROC: 0DTJ4ZZ Resection of Appendix, Percutaneous Endoscopic Approach (ICD-10-PCS; CPT 44970; principal; 2022-07-02 14:15)
DX: K35.31 Acute appendicitis with localized peritonitis and gangrene, without perforation (principal); F17.210 Nicotine dependence, cigarettes, uncomplicated; Z20.822 Contact with and (suspected) exposure to COVID-19
CPT/HCPCS: 36415; 44970; 74177; 76705; 80053; 81003; 81015; 83690; 85025; 87086; 87635; 93005; 96374; 96375; 96376; 99222; 99284; C9803; J0171; J0330; J0744; J1100; J1170; J1885; J2250; J2270; J2405; J2704; J3010; Q9967

== ENCOUNTER → 2022-07-22 07:46 | Outpatient (CLI) | payer OTHER, SELFPAY ==
[2022-07-01 15:47] VITALS: BMI 34.9
--- NOTE | 2022-07-22 | DI.MG.S_ITS ---
BILATERAL DIGITAL SCREENING MAMMOGRAM 3D/2D WITH CAD: 07/22/2022 CLINICAL: Routine screening. Comparison is made to exams dated: 06/25/2020 mammogram - [facility], 08/02/2016 mammogram, and 10/29/2014 mammogram - outside location. There are scattered areas of fibroglandular density in both breasts (category b / 25%-50% glandular tissue). Current study was also evaluated with a Computer Aided Detection (CAD) system. No significant masses, calcifications, or other findings are seen in either breast. There has been no significant interval change. IMPRESSION: NEGATIVE There is no mammographic evidence of malignancy. A 1 year screening mammogram is recommended. Based on the Tyrer Cuzick model (a risk assessment model) the patient's lifetime risk is 4.8% and her 10 year risk is 1.3%. According to the ACR, ACS, and NCCN guidelines, an annual breast MRI exam along with mammogram is recommended if the patient's lifetime risk is 20% or greater. This exam was interpreted at Station ID: [id number]. NOTE: For mammograms, a report in lay terms will be sent to the patient. Approximately 15% of breast malignancies will not be visualized mammographically. In the management of a palpable breast mass, a negative mammogram must not discourage biopsy of a clinically suspicious lesion. Electronically Signed By: Crystal stewart/annia:07/22/2022 08:40:48 letter sent: Normal Exam ACR BI-RADS Category 1: Negative 3341F
== END ==
PROVIDERS: PCP Family Medicine; Referring Provider Family Medicine; Visit Provider Family Medicine
DX: Z12.31 Encounter for screening mammogram for malignant neoplasm of breast (principal)
CPT/HCPCS: 77063; 77067

== ENCOUNTER → 2022-08-09 10:55 | Outpatient (CLI) | payer OTHER, SELFPAY ==
[2022-07-01 15:47] VITALS: BMI 34.9
== END ==
PROVIDERS: PCP Family Medicine; Referring Provider Internal Medicine; Visit Provider Internal Medicine
DX: Z23 Encounter for immunization (principal)
CPT/HCPCS: 90471; 90686

== ENCOUNTER → 2022-10-10 07:31 | Outpatient (CLI) | payer OTHER, SELFPAY ==
[2022-07-01 15:47] VITALS: BMI 34.9
[2022-10-10 08:23] LABS: Add Manual Diff / Slide Review NO; Basophils Absolute Auto 0 /uL (0-100); Basophils Percent Auto 0.5 % (0-2); Eosinophils Absolute Auto 100 /uL (0-450); Hematocrit 40.6 % (36-46); Hemoglobin 13.3 g/dL (12.0-16.0); Lymphocytes Absolute Auto 1500 /uL (1100-4500); Lymphocytes Percent Auto 23.7 % (25-40); Mean Corpuscular HGB Conc 32.8 % (30-36); Mean Corpuscular Hemoglobin 28.8 PG (26-34); Mean Corpuscular Volume 87.5 fL (80-100); Monocytes Absolute Auto 300 /uL (0-900); Monocytes Percent Auto 5.1 % (3-14); Neutrophils Absolute Auto 4400 /uL (1500-7000); Neutrophils Percent Auto 69.7 % (50-75); Platelet Count 305 X10^3/uL (150-400); Red Blood Cell Count 4.64 X10^6/uL (4.0-5.2); Red Cell Distribution Width 14.2 % (11.6-14.8); White Blood Cell Count 6.2 X10^3/uL (4.5-11.0)
[2022-10-10 08:49] LABS: Alanine Aminotransferase 23 IU/L (<35); Alkaline Phosphatase 79 U/L (38-126); Aspartate Aminotransferase 22 IU/L (14-36); BUN Creatinine Ratio 23.2 (6-22); Bilirubin Total 0.2 mg/dL (0.2-1.3); Blood Urea Nitrogen 19 mg/dL (7-17); Calcium 9.2 mg/dL (8.4-10.2); Carbon Dioxide 24 mmol/L (22-32); Chloride 105 mmol/L (98-107); Cholesterol 278 mg/dL (140-199); Estimated Glomerular Filt Rate > 60 mL/min (>60); Glucose 102 mg/dL (70-100); HDL Cholesterol 70 mg/dL (40-60); HEMOLYSIS < 15 (0-50); LDL Cholesterol Calculated 192 mg/dL (<100); Potassium 3.9 mmol/L (3.4-5.1); Sodium 140 mmol/L (137-145); Total Protein 8.3 g/dL (6.3-8.2); Triglycerides 81 mg/dL (35-150)
[2022-10-10 09:20] LABS: TSH w/ Reflex to FT4 1.53 uIU/mL (0.47-4.68)
[2022-10-14 15:34] LABS: Albumin 4.5 g/dL (3.5-5.0); Albumin Globulin Ratio 1.2 (1.0-2.8); Globulin 3.8 g/dL (1.7-4.1)
== END ==
PROVIDERS: PCP Family Medicine; Referring Provider Family Medicine; Visit Provider Family Medicine
DX: Z00.00 Encounter for general adult medical examination without abnormal findings (principal); J30.2 Other seasonal allergic rhinitis; N95.1 Menopausal and female climacteric states; R23.2 Flushing; Z71.6 Tobacco abuse counseling
CPT/HCPCS: 36415; 80053; 80061; 84443; 85025

== ENCOUNTER 2023-02-24 11:58 | Day surgery (SDC) | payer OTHER, SELFPAY ==
[2022-07-01 15:47] VITALS: BMI 34.9
--- NOTE | 2023-02-24 | PATH_ITS ---
[facility] Accession Number: [id number] No. of containers..01 Tissue . 01 Material submitted: . colon - CECAL POLYP . 01 Diagnosis: Cecal Polyp: Sessile serrated adenoma. [facility] 03/01/2023 1157 Local . 01 Electronically signed: . Ras Diaz MD, PhD, Pathologist NPI- [id number] . 01 Gross description: . CECAL POLYP: Received in formalin are multiple fragment(s) of degroot, soft tissue measuring 0.1 x 0.1 x 0.1 cm to 0.3 x 0.3 x 0.3 cm submitted entirely in 1 cassette(s) /[facility] 02/27/2023 1856 Local . 01 Pathologist provided ICD-10: D12.0 . 01 CPT . 494879 Specimen Comment: A courtesy copy of this report has been sent to [facility] Performed at: 01 [facility] [address] [place] [address], [place], [place] [id number] MD Dwayne Sanchez MD Phone: [phone]
[2023-02-24 12:18] VITALS: BP 121/86; PULSE 79; RESP 16; TEMP 36.4; O2SAT 98; BMI 36.9
[2023-02-24] MEDS: LACTATED RINGERS 1,000 ML 42 ML IV (12:30)
--- NOTE | 2023-02-24 12:52 | P.HP_ITS ---
History of Present Illness History of Present Illness Date Patient Seen: 02/24/23 Time Patient Seen: 12:52 Chief complaint: [facility] Narrative: Ms. Ibarra presents today for a screening colonoscopy. She is never had a colonoscopy before. However about 20 years ago she had a sigmoidoscopy because she was having symptoms of IBS. Recently in the last few years she really has not had any issues with IBS or any symptoms that she finds concerning. She does have some hemorrhoids and had some symptoms with that. Has no family history of colon cancer either. She understands the risks benefits and alternatives of a screening colonoscopy and would like to proceed [facility] Medical History Acute right-sided thoracic back pain Carpal tunnel syndrome (~1989) Chicken pox (~1972) Seasonal allergies Surgical History Anesthesia History of partial hysterectomy (~2000) Family History Father Arthritis Mother Parkinson's disease Sister Fibromyalgia Arthritis Dercum disease Social History (Updated 11/10/22 @ 13:48 by Christiana Sam LPN) household members: none Smoking Status: Former smoker alcohol intake: current Meds Home Medications and Allergies Home Medications Medication Instructions Recorded Confirmed Type progesterone E4m 1 cap PO .qhs #90 caps 01/26/23 Rx Adrenaliv 02/24/23 History magnesium 02/24/23 History Allergies Allergy/AdvReac Type Severity Reaction Status Date / Time Penicillins Allergy Mild hives Verified 02/24/23 12:12 Exam Vital Signs (past 8 hours): - 02/24/23 12:18 Temperature 97.5 F L Pulse Rate 79 Respiratory Rate 16 Blood Pressure 121/86 Pulse Oximetry 98 Oxygen Delivery Method Room Air Oxygen Delivery Method Room Air Const General: cooperative, healthy appearing and comfortable Nutritional Appearance: obese HENMT Head: normal to inspection Eyes General: appearance normal, both eyes and all related structures Resp Effort & Inspection: normal respiratory effort and able to speak in complete sentences Cardio Pulses: radial pulses present GI Palpation: soft and No tender Assessment & Plan Assessment and plan (1) Screening for malignant neoplasm of colon: Status: Chronic Assessment & Plan narrative: Presents today for screening colonoscopy I discussed the risks benefits and alternatives including but not limited to perforation of the colon and an incomplete exam she fully understands these risks and would like to proceed.
[2023-02-24 15:35] VITALS: BP 97/64; PULSE 85; RESP 16; TEMP 36.2; O2SAT 99
[2023-02-24 15:38] VITALS: BP 91/64; PULSE 81; RESP 13; O2SAT 98
[2023-02-24 15:40] VITALS: BP 102/69; PULSE 94; RESP 22; O2SAT 94
--- NOTE | 2023-02-24 15:47 | PM.OP.COLON ---
Operative Date/Time/Diagnoses Date of procedure: 02/24/23 Time of procedure: 15:47 Pre-op diagnosis: Screening for colon cancer Post-op diagnosis: same Procedure & Clinicians Study performed: Colonoscopy and biopsy Same procedure as scheduled: Yes Indications: Screening for colon cancer. Surgeon: Dolly Gonzalez Procedure Notes Procedure in detail: Patient is taken to the endoscopy suite and placed in left lateral decubitus position. Time-out was performed. With the help of anesthesiology provider conscious sedation is induced and monitored. Digital rectal exam is performed there were no masses or strictures. The colonoscope was introduced into the anal canal and advanced through to the cecum. Some abdominal pressure was required to reach the cecum. The bowel prep was good [place] bowel prep score of 2. A photograph of the appendiceal orifice is obtained. There was a sessile a proximally 0.08 cm sized polyp in the cecum that was removed completely with a biopsy forceps. The withdrawal time in total was 20 minutes including biopsy time. There were no other polyps seen during withdrawal. The scope was then retroflexed and the hemorrhoidal piles appeared normal. Findings: polyp(s) Specimen(s): other (Sessile cecal polyp x1) Complications: none Post-procedure Plan for aftercare: Follow up in 5-10 years depending on pathology.
[2023-02-24 15:49] VITALS: BP 113/92; PULSE 91; RESP 14; O2SAT 97
== END 2023-02-24 16:08 | disposition home or self-care (01) ==
PROVIDERS: PCP Family Medicine; Referring Provider Surgery; Visit Provider Surgery
PROC: 0DJD8ZZ Inspection of Lower Intestinal Tract, Via Natural or Artificial Opening Endoscopic (ICD-10-PCS; CPT 45378; principal; 2023-02-24 13:00)
DX: Z12.11 Encounter for screening for malignant neoplasm of colon (principal); D12.0 Benign neoplasm of cecum
CPT/HCPCS: 45380; J2704

== ENCOUNTER → 2023-05-09 15:36 | Outpatient (CLI) | payer OTHER, SELFPAY ==
[2022-07-01 15:47] VITALS: BMI 34.9
[2023-05-09 19:33] LABS: Appearance Urine UA CLEAR; Bilirubin Urine UA NEGATIVE (NEGATIVE); Color Urine UA YELLOW; Glucose Urine UA NEGATIVE (Negative); Ketones Urine UA NEGATIVE (NEGATIVE); Leukocyte Esterase Urine UA 1+ (NEGATIVE); Nitrite Urine UA NEGATIVE (Negative); Occult Blood Urine UA NEGATIVE (Negative); Protein Urine UA NEGATIVE (Negative); Specific Gravity Urine UA <=1.005 (1.000-1.035); Urobilinogen Urine UA 0.2 E.U./dL (0.2)
[2023-05-09 19:53] LABS: Bacteria Urine Few (2-10); Culture Indicated Urine Specimen Cultured; RBC Urine None Seen (0-5/HPF); Squamous Epithelial Cell Urine 0-1 /HPF (0-5/HPF); WBC Urine 1-5/HPF (0-5/HPF)
== END ==
PROVIDERS: PCP Family Medicine; Visit Provider Family Medicine
DX: R30.0 Dysuria (principal)
CPT/HCPCS: 81001; 87086

== ENCOUNTER → 2023-05-15 08:19 | Outpatient (CLI) | payer OTHER, SELFPAY ==
[2022-07-01 15:47] VITALS: BMI 34.9
[2023-05-15 09:12] LABS: Add Manual Diff / Slide Review NO; Basophils Absolute Auto 0 /uL (0-100); Basophils Percent Auto 0.4 % (0-2); Eosinophils Absolute Auto 100 /uL (0-450); Eosinophils Percent Auto 0.9 % (2-4); Hematocrit 39.5 % (36-46); Hemoglobin 13.4 g/dL (12.0-16.0); Lymphocytes Absolute Auto 1700 /uL (1100-4500); Lymphocytes Percent Auto 23.6 % (25-40); Mean Corpuscular Hemoglobin 29.2 PG (26-34); Mean Corpuscular Volume 85.9 fL (80-100); Monocytes Absolute Auto 400 /uL (0-900); Monocytes Percent Auto 6.1 % (3-14); Neutrophils Absolute Auto 4900 /uL (1500-7000); Platelet Count 281 X10^3/uL (150-400); Red Blood Cell Count 4.59 X10^6/uL (4.0-5.2); Red Cell Distribution Width 14.4 % (11.6-14.8); White Blood Cell Count 7.1 X10^3/uL (4.5-11.0)
[2023-05-15 09:40] LABS: Creatinine Urine Random 72.9 mg/dL
[2023-05-15 09:42] LABS: Alanine Aminotransferase 24 IU/L (<35); Albumin 4.5 g/dL (3.5-5.0); Albumin Globulin Ratio 1.3 (1.0-2.8); Alkaline Phosphatase 76 U/L (38-126); Aspartate Aminotransferase 23 IU/L (14-36); BUN Creatinine Ratio 16.1 (6-22); Bilirubin Total 0.4 mg/dL (0.2-1.3); Blood Urea Nitrogen 14 mg/dL (7-17); Calcium 9.7 mg/dL (8.4-10.2); Carbon Dioxide 26 mmol/L (22-32); Chloride 103 mmol/L (98-107); Cholesterol 242 mg/dL (140-199); Estimated Glomerular Filt Rate > 60 mL/min (>60); Globulin 3.5 g/dL (1.7-4.1); Glucose 102 mg/dL (70-100); HDL Cholesterol 59 mg/dL (40-60); HEMOLYSIS < 15 (0-50); LDL Cholesterol Calculated 164 mg/dL (<100); Potassium 4.4 mmol/L (3.4-5.1); Sodium 138 mmol/L (137-145); Triglycerides 95 mg/dL (35-150)
[2023-05-15 09:49] LABS: Microalbumin Urine Random < 0.6 mg/dL (0-1.6)
[2023-05-20 12:46] LABS: Percent Free Testosterone 1.19 % (0.50-2.80); Testosterone Free 0.26 ng/dL (0.10-0.85); Testosterone Total 22.2 ng/dL (.)
== END ==
PROVIDERS: PCP Family Medicine; Referring Provider Family Medicine; Visit Provider Family Medicine
DX: E78.5 Hyperlipidemia, unspecified (principal); R23.2 Flushing; R63.5 Abnormal weight gain
CPT/HCPCS: 36415; 80053; 80061; 82043; 82570; 84402; 84403; 84443; 85025

== ENCOUNTER → 2023-07-24 14:48 | Outpatient (CLI) | payer OTHER, SELFPAY ==
[2022-07-01 15:47] VITALS: BMI 34.9
--- NOTE | 2023-07-24 | DI.MG.S_ITS ---
BILATERAL DIGITAL SCREENING MAMMOGRAM 3D/2D WITH CAD: 07/24/2023 CLINICAL: Routine screening. Comparison is made to exams dated: 07/22/2022 mammogram, 06/25/2020 mammogram - [facility], and 08/02/2016 mammogram - outside location. There are scattered areas of fibroglandular density in both breasts (category b / 25%-50% glandular tissue). Current study was also evaluated with a Computer Aided Detection (CAD) system. No significant masses, calcifications, or other findings are seen in either breast. There has been no significant interval change. IMPRESSION: NEGATIVE There is no mammographic evidence of malignancy. A 1 year screening mammogram is recommended. Based on the Tyrer Cuzick model (a risk assessment model) the patient's lifetime risk is 4.7% and her 10 year risk is 1.4%. According to the ACR, ACS, and NCCN guidelines, an annual breast MRI exam along with mammogram is recommended if the patient's lifetime risk is 20% or greater. This exam was interpreted at Station ID: [id number]. NOTE: For mammograms, a report in lay terms will be sent to the patient. Approximately 15% of breast malignancies will not be visualized mammographically. In the management of a palpable breast mass, a negative mammogram must not discourage biopsy of a clinically suspicious lesion. Electronically Signed By: Gallo beavers/annia:07/24/2023 15:19:27 letter sent: Normal Exam ACR BI-RADS Category 1: Negative 3341F
== END ==
PROVIDERS: PCP Family Medicine; Referring Provider Family Medicine; Visit Provider Family Medicine
DX: Z12.31 Encounter for screening mammogram for malignant neoplasm of breast (principal)
CPT/HCPCS: 77063; 77067

== ENCOUNTER → 2024-04-15 07:58 | Outpatient (CLI) | payer OTHER, SELFPAY ==
[2022-07-01 15:47] VITALS: BMI 34.9
[2024-04-15 08:43] LABS: Appearance Urine UA CLEAR; Bilirubin Urine UA NEGATIVE (NEGATIVE); Color Urine UA YELLOW; Glucose Urine UA NEGATIVE (Negative); Ketones Urine UA NEGATIVE (NEGATIVE); Leukocyte Esterase Urine UA NEGATIVE (NEGATIVE); Nitrite Urine UA NEGATIVE (Negative); Occult Blood Urine UA NEGATIVE (Negative); Protein Urine UA NEGATIVE (Negative); Specific Gravity Urine UA <=1.005 (1.000-1.035); Urobilinogen Urine UA 0.2 E.U./dL (0.2); pH Urine UA 5.5 (4.5-8.0)
[2024-04-15 08:44] LABS: Urine Volume 10mL (spun)
[2024-04-15 08:45] LABS: Bacteria Urine None Seen; Culture Indicated Urine Cult Not Indicated; RBC Urine None Seen (0-5/HPF); Squamous Epithelial Cell Urine None Seen (0-5/HPF); WBC Urine None Seen (0-5/HPF)
[2024-04-15 09:10] LABS: Add Manual Diff / Slide Review NO; Basophils Absolute Auto 0 /uL (0-100); Basophils Percent Auto 0.4 % (0-2); Eosinophils Absolute Auto 0 /uL (0-450); Eosinophils Percent Auto 0.6 % (2-4); Hematocrit 39.6 % (36-46); Hemoglobin 13.3 g/dL (12.0-16.0); Lymphocytes Absolute Auto 1800 /uL (1100-4500); Lymphocytes Percent Auto 23.7 % (25-40); Mean Corpuscular HGB Conc 33.6 % (30-36); Mean Corpuscular Hemoglobin 29.7 PG (26-34); Mean Corpuscular Volume 88.3 fL (80-100); Monocytes Absolute Auto 400 /uL (0-900); Monocytes Percent Auto 4.9 % (3-14); Neutrophils Absolute Auto 5500 /uL (1500-7000); Neutrophils Percent Auto 70.4 % (50-75); Platelet Count 265 X10^3/uL (150-400); Red Blood Cell Count 4.48 X10^6/uL (4.0-5.2); Red Cell Distribution Width 14.7 % (11.6-14.8); White Blood Cell Count 7.8 X10^3/uL (4.5-11.0)
[2024-04-15 09:29] LABS: Alanine Aminotransferase 28 IU/L (<35); Albumin 4.7 g/dL (3.5-5.0); Albumin Globulin Ratio 1.7 (1.0-2.8); Alkaline Phosphatase 78 U/L (38-126); Aspartate Aminotransferase 24 IU/L (14-36); BUN Creatinine Ratio 15.8 (6-22); Bilirubin Total 0.4 mg/dL (0.2-1.3); Blood Urea Nitrogen 15 mg/dL (7-17); C-Reactive Protein Quant < 0.5 mg/dL (<1.0); Calcium 9.6 mg/dL (8.4-10.2); Carbon Dioxide 23 mmol/L (22-32); Chloride 104 mmol/L (98-107); Estimated Glomerular Filt Rate > 60 mL/min (>60); Globulin 2.7 g/dL (1.7-4.1); Glucose 93 mg/dL (70-100); HEMOLYSIS < 15 (0-50); Potassium 4.2 mmol/L (3.4-5.1); Sodium 138 mmol/L (137-145); Total Protein 7.4 g/dL (6.3-8.2)
[2024-04-15 09:35] LABS: Rheumatoid Factor < 8.6 IU/mL (<12.0)
[2024-04-15 11:29] LABS: Erythrocyte Sedimentation Rate 20 MM/HR (0-20)
== END ==
PROVIDERS: PCP Family Medicine; Referring Provider Dermatology; Visit Provider Dermatology
DX: L95.9 Vasculitis limited to the skin, unspecified (principal)
CPT/HCPCS: 36415; 80053; 81001; 84155; 84165; 85025; 85651; 86038; 86140; 86160; 86162; 86430